=== PATIENT | female | born 1940 | race Asian ===

== ENCOUNTER 2020-05-19 14:25 | Outpatient (RCR) | payer MEDICARE, SELFPAY ==
[2020-05-19] MEDS: COVID-19 VACC, MRNA(PFIZER)/PF 30 MCG/0.3 ML SYRINGE IM (08:57)
[2020-06-09] MEDS: COVID-19 VACC, MRNA(PFIZER)/PF 30 MCG/0.3 ML SYRINGE IM (08:41)
== END 2020-08-16 23:59 ==
LOC: IMMUN 14:25
PROVIDERS: PCP Student in an Organized Health Care Education/Training Program; Visit Provider Family Medicine
DX: Z23 Encounter for immunization (principal)
CPT/HCPCS: 0001A; 0002A; 91300